=== PATIENT | male | born 1935 | race Caucasian/White ===

== ENCOUNTER → 2017-11-01 | Outpatient (CLI) | payer MEDICARE ==
[~2017-11-01] VITALS: Ht 180.3 cm; Wt 72.6 kg
[~2017-11-01] MED LIST: AC325T PO; AC500T PO; ACET-461 PO; AML5T PO; ASP81CT PO; ATOR10TA PO; AVOD0.5CAP PO; CALC-656 PO; CALC600T10 PO; CATHETER FLUSH 10 ML SYR IV PRN; CEFU500T5 PO; CLPD75T PO; DIPH50CA33 PO; FAMO20TA5 PO; FINA5TAB PO; LVT.05T PO; METO25TA2 GT; METO25TA2 PO; MULT-608 PO; NITR-65 PO; NITR100C3 PO; OMEG1CAP51 PO; OMEP20CA6 PO; ONDA-42 SL; PHEN200T16 PO; PHEN200T27 PO; PNT40TEC; PNT40TEC PO; PRD20T PO; QNS260T PO; REGADENOSON 0.4 MG/5 ML SYR (LEXISCAN) IV ONE; SENN-75 PO; SIMV20TA3 PO; SUCR1TAB PO; TMSL.4C; TMSL.4C PO; TRAM50TA2 PO
[2017-11-01 09:13] VITALS: BP 134/71
== END ==
LOC: CARD 07:17
PROVIDERS: ATTEND Internal Medicine Cardiovascular Disease
DX: I25.10 Atherosclerotic heart disease of native coronary artery without angina pectoris (principal); R06.02 Shortness of breath; I65.23 Occlusion and stenosis of bilateral carotid arteries; Z95.0 Presence of cardiac pacemaker; I49.5 Sick sinus syndrome; E78.4 Other hyperlipidemia; I10 Essential (primary) hypertension
CPT/HCPCS: 78452; 93017

== ENCOUNTER 2018-01-06 10:30 | Outpatient (RCR) | payer MEDICARE ==
[~2018-01-06 10:30] MED LIST changes: -CATHETER FLUSH 10 ML SYR IV PRN; -REGADENOSON 0.4 MG/5 ML SYR (LEXISCAN) IV ONE
== END 2018-01-08 | disposition home or self-care (01) ==
PROVIDERS: ATTEND Orthopaedic Surgery
DX: M62.81 Muscle weakness (generalized) (principal); T84.010A Broken internal right hip prosthesis, initial encounter; Z96.641 Presence of right artificial hip joint; W19.XXXA Unspecified fall, initial encounter; Y92.22 Religious institution as the place of occurrence of the external cause

== ENCOUNTER 2018-08-17 09:48 | Outpatient (RCR) | payer MEDICARE | END 2018-09-07 15:55 | disposition home or self-care (01) | DX: M54.5 Low back pain (principal) ==

== ENCOUNTER 2019-11-27 13:01 | Outpatient (RCR) | payer MEDICARE | END 2019-11-27 15:41 | disposition home or self-care (01) | DX: M62.81 Muscle weakness (generalized) (principal); R26.9 Unspecified abnormalities of gait and mobility; Z95.0 Presence of cardiac pacemaker; Z98.890 Other specified postprocedural states; Z87.81 Personal history of (healed) traumatic fracture; Z96.641 Presence of right artificial hip joint ==

== ENCOUNTER 2020-05-13 21:07 | Emergency (ER) | payer MEDICARE ==
[~2020-05-13] VITALS: Ht 175.3 cm; Wt 70.4 kg
[2020-05-13 21:16] VITALS: BP 163/88
--- NOTE | 2020-05-13 21:28 | ED General ---
General Stated Complaint: R HAND SWOLLEN-BEE STING Source of Information: Patient Exam Limitations: No Limitations History of Present Illness Date Seen by Provider: May 13, 2020 Time Seen by Provider: 21:15 Initial Comments Here with report of wasp sting to the right hand at the base of the thumb right at the wrist. Onset about 2 hours ago. Noticed that he had increasing swelling and please see his had reactions to wasp stings previously. Denies breathing problems, stomach pain, hives or oral swelling. Has not taken anything for this. Stinger was removed. Noticed increasing redness from the hand to the forearm on the palmar side. Does have swelling around the staying at the base of the thumb Timing/Duration: 1-3 Hours Severity: Mild Associated Systoms: No Cough, No Fever/Chills, No Nausea/Vomiting, No Shortness of Air, No Weakness Allergies and Home Medications Allergies Coded Allergies: levofloxacin (Verified Allergy, Unknown, 01/11/07) Home Medications Acetaminophen 500 Mg Tablet, 500-1,000 MG PO BID PRN for PAIN, (Reported) Aspirin 81 Mg Tablet, 81 MG PO HS, (Reported) Clopidogrel Bisulfate 75 Mg Tab, 75 MG PO DAILY Prescribed by: JEANIE RUSH on 04/30/15 1008 Finasteride 5 Mg Tablet, 5 MG PO DAILY, (Reported) Levothyroxine Sodium 50 Mcg Tablet, 50 MCG PO DAILY, (Reported) Multivitamins 1 Tab Tablet, 1 TAB PO DAILY, (Reported) [place]-3 Fatty Acids/Fish Oil 1 Each Capsule, 1,000 MG PO TID, (Reported) Pantoprazole Sod 40 Mg Tab, 40 MG PO ONCE Prescribed by: NATHEN HERNANDEZ on 06/09/15 0930 Sennosides/Docusate Sodium 1 Each Tablet, 1 EACH PO PRN, (Reported) Simvastatin 20 Mg Tablet, 20 MG PO WITH EVENING MEAL, (Reported) Tamsulosin Hcl 0.4 Mg Cap, 0.4 MG PO AFTER EVENING MEAL, (Reported) Patient Home Medication List Home Medication List Reviewed: Yes Review of Systems Review of Systems Constitutional: see HPI; No chills, No fever Respiratory: no symptoms reported Cardiovascular: no symptoms reported Gastrointestinal: no symptoms reported Skin: see HPI, change in color, lesions Past Pbwhhmi-Vsztal-Yjhyst Hx Past Med/Social Hx: Reviewed Nursing Past Med/Soc Hx Patient Social History Alcohol Use: Denies Use Recreational Drug Use: No Smoking Status: Never a Smoker 2nd Hand Smoke Exposure: No Recent Foreign Travel: No Contact w/Someone Who Travel: No Recent Hopitalizations: No Immunizations Up To Date Date of Pneumonia Vaccine: Sep 29, 2010 Date of Influenza Vaccine: Aug 27, 2012 Seasonal Allergies Seasonal Allergies: No Past Medical History Surgeries: Yes CABG, Coronary Stent, Defibrillator, Joint Replacement, Orthopedic, Pacemaker Respiratory: No Cardiac: Yes Coronary Artery Disease, High Cholesterol, Hypertension Neurological: No Reproductive Disorders: No Sexually Transmitted Disease: No HIV/AIDS: No Genitourinary: Yes Benign Prostatic Hyperpl, Prostate Problems Gastrointestinal: Yes Gastroesophageal Reflux Musculoskeletal: Yes Arthritis, Chronic Back Pain Endocrine: Yes Hypothyroidsim HEENT: No Cancer: Yes Skin Psychosocial: No Integumentary: No Blood Disorders: No Family Medical History Reviewed Nursing Family Hx No Pertinent Family Hx Physical Exam Vital Signs Capillary Refill : Height, Weight, BMI Height: 5'11.00" Weight: 160lbs. 0.0oz. 72.156442lu; 22.3 BMI Method:Stated General Appearance: No Apparent Distress, WD/WN HEENT: PERRL/EOMI, Pharynx Normal Respiratory: Lungs Clear, Normal Breath Sounds Cardiovascular: Regular Rate, Rhythm, No Murmur Neurologic/Psychiatric: Alert, Oriented x3 Skin: Warm/Dry, Other (area of swelling to the base of the right thumb on the dorsum where he was stung. Redness surrounding the area to the mid hand on the dorsal surface and then wraps over the thumb side to the palmar aspect of the distal forearm approximately 6 cm from the wrist. Retains range of motion of the hand and fingers.) Progress/Results/Core Measures Suspected Sepsis SIRS Temperature: Pulse: Respiratory Rate: Blood Pressure / Mean: Results/Orders Vital Signs/I&O Capillary Refill : Progress Note : Progress Note Seen and evaluated. Decadron 10 mg IM, Pepcid 20 mg by mouth and Benadryl 25 mg by mouth. Discharged home with return precautions. Patient verbalize understanding instructions and agreement with plan. Departure Impression Primary Impression: Wasp sting Qualified Codes: T63.464A - Toxic effect of venom of wasps, undetermined, initial encounter Disposition: 01 HOME, SELF-CARE Condition: Stable Departure-Patient Inst. Decision time for Depature: 21:27 Referrals: EZRA WADE MD (PCP) Primary Care Physician EVENS CHAMBERLAIN MD (Family) Primary Care Physician Patient Instructions: Insect Bites and Stings (DC) Add. Discharge Instructions: You may take Benadryl/diphenhydramine 25 mg every 6 hours as needed for itching or swelling. You may take Tylenol/acetaminophen 1000 mg every 6 hours as needed for pain. Follow-up with your Dr. for recheck in a few days as needed. Return for worse pain, swelling, hives, breathing problems, stomach upset or pain including nausea or swelling in the throat. Return for other concerns as needed. EVENS CHAMBERLAIN MD May 13, 2020 21:28
[2020-05-13] MEDS ORDERED: FAMOTIDINE 20 MG (PEPCID) TABLET PO ONE (21:30)
[2020-05-13] MEDS ORDERED: DEXAMETHASONE 10 MG/ML (DECADRON) 1 ML VIAL IM ONE (21:30)
[2020-05-13] MEDS ORDERED: diphenhydrAMINE 25 MG TAB (BENADRYL) PO ONE (21:30)
== END 2020-05-13 21:34 | disposition home or self-care (01) ==
LOC: EDUNIT# 21:07 → ER 21:08
DX: T63.461A Toxic effect of venom of wasps, accidental (unintentional), initial encounter (principal); I10 Essential (primary) hypertension; E78.00 Pure hypercholesterolemia, unspecified; I25.10 Atherosclerotic heart disease of native coronary artery without angina pectoris; K21.9 Gastro-esophageal reflux disease without esophagitis; E03.9 Hypothyroidism, unspecified; Z88.1 Allergy status to other antibiotic agents; Z79.82 Long term (current) use of aspirin; Z79.02 Long term (current) use of antithrombotics/antiplatelets; Z79.890 Hormone replacement therapy; Z95.810 Presence of automatic (implantable) cardiac defibrillator; Z95.5 Presence of coronary angioplasty implant and graft; Z95.1 Presence of aortocoronary bypass graft; Z85.828 Personal history of other malignant neoplasm of skin
CPT/HCPCS: 99284

== ENCOUNTER 2020-10-05 03:41 | Emergency (ER) | payer MEDICARE ==
[~2020-10-05] VITALS: Ht 175.3 cm; Wt 70.5 kg
[2020-10-05 03:47] VITALS: BP 167/95
--- NOTE | 2020-10-05 04:07 | ED Fall/Injury ---
General Chief Complaint: Trauma-Non Activation Stated Complaint: FALL; HEAD INJ Nursing Triage Note: REPORTS TRIPPING APPROX. 0150. SKIN TEAR TO TOP OF HEAD. DENIES LOC. Source: patient Exam Limitations: no limitations History of Present Illness Date Seen by Provider: Oct 05, 2020 Time Seen by Provider: 03:39 Initial Comments Patient presents ER by private conveyance with chief complaint that about an hour and a half prior to arrival he was walking around his house after going to the bathroom and tripped over a coffee table landing on the top of his head. He denies loss of consciousness or nausea. He's having some mild pain but does not want anything for the top of his head. He put a bandage over it because he had a little bleeding and says he does take Plavix. He is known to Dr. Wade and Dr. Ascencio. He's not having any pain elsewhere. Last tetanus vaccine was administered in 2008. Location Injury Occurred: HOME Allergies and Home Medications Allergies Coded Allergies: levofloxacin (Verified Allergy, Unknown, 01/11/07) Home Medications Acetaminophen 500 Mg Tablet, 500-1,000 MG PO BID PRN for PAIN, (Reported) Aspirin 81 Mg Tablet, 81 MG PO HS, (Reported) Clopidogrel Bisulfate 75 Mg Tab, 75 MG PO DAILY Prescribed by: JEANIE RUSH on 04/30/15 1008 Finasteride 5 Mg Tablet, 5 MG PO DAILY, (Reported) Levothyroxine Sodium 50 Mcg Tablet, 50 MCG PO DAILY, (Reported) Multivitamins 1 Tab Tablet, 1 TAB PO DAILY, (Reported) [place]-3 Fatty Acids/Fish Oil 1 Each Capsule, 1,000 MG PO TID, (Reported) Pantoprazole Sod 40 Mg Tab, 40 MG PO ONCE Prescribed by: NATHEN HERNANDEZ on 06/09/15 0930 Sennosides/Docusate Sodium 1 Each Tablet, 1 EACH PO PRN, (Reported) Simvastatin 20 Mg Tablet, 20 MG PO WITH EVENING MEAL, (Reported) Tamsulosin Hcl 0.4 Mg Cap, 0.4 MG PO AFTER EVENING MEAL, (Reported) Patient Home Medication List Home Medication List Reviewed: Yes Review of Systems Review of Systems Constitutional: No chills, No fever Eyes: Denies Blindness, Denies Drainage Ears, Nose, Mouth, Throat: denies ear pain, denies nose pain Respiratory: No cough, No short of breath Cardiovascular: No edema, No syncope Gastrointestinal: No abdominal pain, No constipation, No diarrhea Musculoskeletal: No back pain, No joint pain All Other Systems Reviewed Negative Unless Noted: Yes Past Ykkdlhp-Rzhmzg-Mqgynu Hx Patient Social History Alcohol Use: Denies Use Recreational Drug Use: No Smoking Status: Never a Smoker 2nd Hand Smoke Exposure: No Recent Foreign Travel: No Contact w/Someone Who Travel: No Recent Infectious Disease Expo: No Recent Hopitalizations: No Immunizations Up To Date Tetanus Booster (TDap): Unknown Date of Pneumonia Vaccine: Sep 29, 2010 Date of Influenza Vaccine: Aug 27, 2012 Seasonal Allergies Seasonal Allergies: No Past Medical History Surgeries: Yes CABG, Coronary Stent, Defibrillator, Joint Replacement, Orthopedic, Pacemaker Respiratory: No Cardiac: Yes Coronary Artery Disease, High Cholesterol, Hypertension Neurological: No Reproductive Disorders: No Sexually Transmitted Disease: No HIV/AIDS: No Genitourinary: Yes Benign Prostatic Hyperpl, Prostate Problems Gastrointestinal: Yes Gastroesophageal Reflux Musculoskeletal: Yes Arthritis, Chronic Back Pain Endocrine: Yes Hypothyroidsim HEENT: No Cancer: Yes Skin Psychosocial: No Integumentary: No Blood Disorders: No Family Medical History No Pertinent Family Hx Physical Exam Vital Signs Vital Signs - First Documented 10/05/20 03:47 Temp 36.0 Pulse 81 Resp 16 B/P (MAP) 167/95 (119) Pulse Ox 99 O2 Delivery Room Air Capillary Refill : Less Than 3 Seconds Height, Weight, BMI Height: 5'11.00" Weight: 160lbs. 0.0oz. 72.584621ks; 22.00 BMI Method:Stated General Appearance: WD/WN, no apparent distress HEENT: PERRL/EOMI, normal ENT inspection, TMs normal, pharynx normal, other (3 cm round abrasion superficial to the crown of the head midline. Smaller 1 senna meter around superficial abrasion posterior on the right parietal scalp from previous fall.) Neck: non-tender, full range of motion, supple, normal inspection Cardiovascular: normal peripheral pulses, regular rate, rhythm Respiratory: no respiratory distress, no accessory muscle use Gastrointestinal: normal bowel sounds, non tender Extremities: normal range of motion, normal capillary refill Neurologic/Psychiatric: alert, normal mood/affect, oriented x 3 Skin: normal color, warm/dry [place] Coma Score Best Eye Response: (4) Open Spontaneously Best Verbal Response: (5) Oriented Best Motor Response: (6) Obeys Commands [place] Total: 15 Procedures/Interventions Wound Location: Scalp Other Wound Location Midline scalp Wound Length (cm): 3 Wound's Depth, Shape: superficial Wound Explored: clean Irrigated w/ Saline (ccs): 50 Betadine Prep?: Yes (chlorhexidine) Wound Debrided: minimal Other Closure Supply: Wound Adhesive Progress/Results/Core Measures Results/Orders My Orders Orders - MAKENZIE BEARD Ct Head/Cervical Spine Wo (10/05/20 03:55) Vital Signs/I&O 10/05/20 03:47 Temp 36.0 Pulse 81 Resp 16 B/P (MAP) 167/95 (119) Pulse Ox 99 O2 Delivery Room Air Blood Pressure Mean: 119 Progress Progress Note : Time: 03:59 Progress Note Cleaned up the skin with chlorhexidine and saline and applied wound adhesive. It is now hemostatic. Plan to get a CT of his head given his age and Plavix. TDaP ordered. Diagnostic Imaging Diagonstic Imaging: CT Plain Films/CT/US/NM/MRI: c-spine, head Comments No acute intracranial hemorrhage mass effect and midline shift or tumor. No calvarial fracture or C-spine fracture/traumatic malalignment acutely seen. Reviewed: Reviewed Night Hawk Study, Reviewed by Me Departure Impression Primary Impression: Fall Qualified Codes: W19.XXXA - Unspecified fall, initial encounter Additional Impression: Abrasion Disposition: 01 HOME, SELF-CARE Condition: Stable Departure-Patient Inst. Decision time for Depature: 04:16 Referrals: EZRA WADE MD (PCP/Family) Primary Care Physician Patient Instructions: Skin Abrasions (DC) Add. Discharge Instructions: Tylenol 1000 mg every 8 hours as necessary for pain. The glue will fall off on its own over the next week. You're okay to take showers normally. If you start to have some bleeding from the abrasion you may apply direct pressure for 20 minutes and it should stop. All discharge instructions reviewed with patient and/or family. Voiced unders tanding. MAKENZIE BEARD Oct 05, 2020 04:06
[2020-10-05] MEDS ORDERED: TETANUS,DIPTH,PERTUSS P/F (BOOSTRIX) 0.5 ML VIAL IM ONE (05:00)
--- NOTE | 2020-10-05 07:27 | Diagnostic Imaging Report ---
PROCEDURE: CT head and CT cervical spine without contrast. TECHNIQUE: Multiple contiguous axial images were obtained through the brain and cervical spine without the use of intravenous contrast. Sagittal and coronal reformations through the cervical spine were then performed. Auto Exposure Controls were utilized during the CT exam to meet ALARA standards for radiation dose reduction. DATE: October 05, 2020. COMPARISON: CT head April 07, 2015. INDICATION: 85-year-old male, trauma to top of head. Head and neck pain. FINDINGS: There is mild soft tissue prominence in the high right anterior scalp which may relate to a small contusion or hematoma. There is no identified skull fracture. There are areas of low attenuation in the periventricular and subcortical white matter which most likely relate to mild changes of chronic small vessel ischemic disease. There are symmetric bilateral basal ganglia calcifications. There is no mass effect or midline shift. There is no acute intracranial hemorrhage. There is no abnormal extra-axial fluid collection. The visualized portions of the paranasal sinuses, mastoid air cells and middle ears are well aerated. There is no identified facet joint subluxation or dislocation. There is no asymmetric widening of the cervical disc spaces. There is no prominent prevertebral soft tissue swelling. There is no identified acute fracture of the cervical spine. There is mild disc height loss at C2-C3 and C3-C4. There is moderate to severe disc height loss at C5-C6 and C6-C7. There are also degenerative changes at C7-T1 and T1-T2. There are multilevel posterior disc osteophyte complexes of the cervical spine. CT is limited for assessment of disc pathology as well as evaluation of additional nonbony causes of pathology in the spinal canal. There is mild pleural parenchymal scarring in the right lung apex. There are bilateral carotid vascular calcifications. IMPRESSION: 1. No identified acute intracranial abnormality. 2. No identified acute abnormality of the cervical spine. 3. Mild changes of chronic small vessel ischemic disease. 4. Multilevel disc degenerative changes of the cervical spine. Dictated by: Dictated on workstation # [id number]
== END 2020-10-05 04:59 | disposition home or self-care (01) ==
LOC: EDUNIT# 03:41 → ER 03:42
DX: S00.01XA Abrasion of scalp, initial encounter (principal); I10 Essential (primary) hypertension; I25.10 Atherosclerotic heart disease of native coronary artery without angina pectoris; E78.00 Pure hypercholesterolemia, unspecified; E03.9 Hypothyroidism, unspecified; K21.9 Gastro-esophageal reflux disease without esophagitis; G89.29 Other chronic pain; R40.2360 Coma scale, best motor response, obeys commands, unspecified time; R40.2140 Coma scale, eyes open, spontaneous, unspecified time; R40.2250 Coma scale, best verbal response, oriented, unspecified time; Z85.828 Personal history of other malignant neoplasm of skin; Z95.1 Presence of aortocoronary bypass graft; Z95.5 Presence of coronary angioplasty implant and graft; Z88.1 Allergy status to other antibiotic agents; Z79.82 Long term (current) use of aspirin; Z79.890 Hormone replacement therapy; W01.0XXA Fall on same level from slipping, tripping and stumbling without subsequent striking against object, initial encounter; Y92.009 Unspecified place in unspecified non-institutional (private) residence as the place of occurrence of the external cause
CPT/HCPCS: 70450; 72125; 90715

== ENCOUNTER → 2022-01-08 | Outpatient (CLI) | payer MEDICARE | LOC: CARD 14:00 | PROVIDERS: ATTEND Nurse Practitioner Family | DX: I25.5 Ischemic cardiomyopathy (principal); I08.2 Rheumatic disorders of both aortic and tricuspid valves | CPT/HCPCS: 93306 ==

== ENCOUNTER → 2022-01-26 | Outpatient (CLI) | payer MEDICARE ==
[~2022-01-26] VITALS: Ht 185 cm; Wt 68.0 kg
[~2022-01-26] MED LIST changes: +CATHETER FLUSH 10 ML SYR IVP PRN; +REGADENOSON 0.4 MG/5 ML SYR (LEXISCAN) IV ONE
[2022-01-26 09:38] VITALS: BP 147/77
--- NOTE | 2022-01-26 20:24 | STRESS TEST ---
DATE OF SERVICE: 01/26/2022 RESTING AND POST REGADENOSON TECHNETIUM-99M TETROFOSMIN SPECT CT IMAGING ORDERING PHYSICIAN: Katya Mata APRN PRIMARY PHYSICIAN: Dr. Murillo. CLINICAL DIAGNOSIS: Coronary artery disease. Baseline images were carried out after injection of 10.97 mCi of technetium-99m Tetrofosmin. This was followed by 0.4 mg regadenoson and 29.7 mCi of technetium-99m Tetrofosmin for stress imaging. The electrocardiogram showed sinus rhythm with nonspecific ST and T-wave abnormality at baseline. It did not change significantly with regadenoson infusion. The patient tolerated the procedure well. Review of images at rest and following stress does not indicate any distinct perfusion defects consistent with significant myocardial ischemia or infarction. Gated images show normal global left ventricular systolic function with normal regional wall motion. Left ventricular ejection fraction is calculated to be 47%. Subjectively, it appears higher than that. Left ventricular end-diastolic volume is 79 mL. TID is absent (1.03). CONCLUSIONS: 1. No evidence of significant myocardial ischemia or infarction on this study. 2. Normal regional wall motion. 3. Normal global left ventricular systolic function. Left ventricular ejection fraction is calculated to be 47%, but appears higher, subjectively. Job ID: [id number] DocumentID: [id number] Dictated Date: 01/26/2022 16:19:59 Director Industrial Nursing Date: 01/26/2022 20:23:43 Dictated By: ALEXX LEMONS MD, MA, FACP, FACC,
== END ==
LOC: CARD 08:30
PROVIDERS: ATTEND Nurse Practitioner Family
DX: I25.10 Atherosclerotic heart disease of native coronary artery without angina pectoris (principal)
CPT/HCPCS: 78452; 93017; A9502

== ENCOUNTER 2022-11-04 11:34 | Emergency (ER) | payer MEDICARE ==
[~2022-11-04] VITALS: Ht 180 cm; Wt 63.5 kg
[~2022-11-04 11:34] MED LIST changes: -CATHETER FLUSH 10 ML SYR IVP PRN; -REGADENOSON 0.4 MG/5 ML SYR (LEXISCAN) IV ONE
--- NOTE | 2022-11-04 12:55 | ED General ---
General Chief Complaint: Cough/Cold/Flu Symptoms Stated Complaint: SOA Nursing Triage Note: PT PRESENTS TO ED VIA POV FROM HOME WITH COMPLAINTS OF COUGH, CONGESTION, SORE THROAT, AND DIARRHEA X1 WEEK. PT UNURE IF HE HAS BEEN RUNNING A TEMPERATURE BUT DENIES CHILLS. Source of Information: Patient Exam Limitations: No Limitations (JENN CAST APRN) History of Present Illness Date Seen by Provider: Nov 04, 2022 Time Seen by Provider: 12:40 Initial Comments Patient is an 87-year-old male who presents to the emergency department for evaluation of approximately 3 days of mild nonproductive cough, sore throat, and body aches. Denies any known sick contacts in the recent past. Has not formally checked his temperature but states he has been having some chills intermittently. Denies any significant shortness of breath, chest pain, or focal numbness/weakness. (JENN CAST APRN) Allergies and Home Medications Allergies Coded Allergies: levofloxacin (Verified Allergy, Unknown, 01/11/07) Patient Home Medication List Home Medication List Reviewed: Yes (JENN CAST APRN) Acetaminophen (Pain Relief Extra Strength) 500 Mg Tablet, 500-1,000 MG PO BID PRN for PAIN, (Reported) Entered as Reported by: AIDEE STEEN on 04/29/15813 Aspirin (Aspirin) 81 Mg Tablet, 81 MG PO HS, (Reported) Entered as Reported by: ADAN PERRIN on 02/18/07 1701 Clopidogrel Bisulfate (Plavix Tablet) 75 Mg Tab, 75 MG PO DAILY Prescribed by: JEANIE RUSH on 04/30/15 1008 Finasteride (Finasteride) 5 Mg Tablet, 5 MG PO DAILY, (Reported) Entered as Reported by: AIDEE STEEN on 04/29/15813 Levothyroxine Sodium (Levothyroxine 50 Mcg Tab) 50 Mcg Tablet, 50 MCG PO DAILY, (Reported) Entered as Reported by: AIDEE STEEN on 04/29/15813 Multivitamins (Multiple Vitamin) 1 Tab Tablet, 1 TAB PO DAILY, (Reported) Entered as Reported by: CHAVEZ MALCOLM on 08/14/11 1456 [place]-3 Fatty Acids/Fish Oil (Fish Oil 1,000 Mg Softgel) 1 Each Capsule, 1,000 MG PO TID, (Reported) Entered as Reported by: ANTONELLA ROSE on 03/21/11 190 Pantoprazole Sod (Protonix Tab) 40 Mg Tab, 40 MG PO ONCE Prescribed by: NATHEN HERNANDEZ on 06/09/15 0930 Sennosides/Docusate Sodium (Stool Softener Tablet) 1 Each Tablet, 1 EACH PO PRN, (Reported) Entered as Reported by: ROGER BALTAZAR on 06/05/15 1220 Simvastatin (Simvastatin) 20 Mg Tablet, 20 MG PO WITH EVENING MEAL, (Reported) Entered as Reported by: ANTONELLA ROSE on 03/21/11 190 Tamsulosin Hcl (Flomax) 0.4 Mg Cap, 0.4 MG PO AFTER EVENING MEAL, (Reported) Entered as Reported by: ANTONELLA ROSE on 03/19/13 1339 Review of Systems Review of Systems Constitutional: see HPI, malaise EENTM: see HPI, nose congestion, throat pain Respiratory: see HPI, cough Cardiovascular: no symptoms reported Gastrointestinal: no symptoms reported Musculoskeletal: see HPI Skin: no symptoms reported Psychiatric/Neurological: No Symptoms Reported (JENN CAST APRN) Past Uklrhzd-Ggcmog-Jkuhnn Hx Patient Social History Tobacco Use?: No Substance use?: No Alcohol Use?: No (JENN CAST APRN) Immunizations Up To Date Tetanus Booster (TDap): Unknown Influenza Vaccine Up-to-Date: No; Not Current First/Initial COVID19 Vaccinat: NO Second COVID19 Vaccination Haja: NO Third COVID19 Vaccination Date: NO (JENN CAST APRN) Seasonal Allergies Seasonal Allergies: No (JENN CAST APRN) Past Medical History Surgery/Hospitalization HX: PMH: IRREGULAR HR, HTN, HIGH CHOL, Surgeries: Yes CABG, Coronary Stent, Defibrillator, Joint Replacement, Orthopedic, Pacemaker Respiratory: No Cardiac: Yes Coronary Artery Disease, High Cholesterol, Hypertension Neurological: No Reproductive Disorders: No Sexually Transmitted Disease: No HIV/AIDS: No Genitourinary: Yes Benign Prostatic Hyperpl, Prostate Problems Gastrointestinal: Yes Gastroesophageal Reflux Musculoskeletal: Yes Arthritis, Chronic Back Pain Endocrine: Yes Hypothyroidsim HEENT: No Cancer: Yes Skin Psychosocial: No Integumentary: No Blood Disorders: No (JENN CAST APRN) Family Medical History No Pertinent Family Hx (JENN CAST APRN) Physical Exam Vital Signs Vital Signs - First Documented 11/04/22 11:45 Temp 36.9 Pulse 104 Resp 18 B/P (MAP) 100/64 (76) Pulse Ox 94 (REY BAIN MD) Vital Signs Capillary Refill : Less Than 3 Seconds (JENN CAST APRN) Height, Weight, BMI Height: 5'11.00" Weight: 160lbs. 0.0oz. 72.129998bx; 19.00 BMI Method:Stated General Appearance: No Apparent Distress, WD/WN HEENT: PERRL/EOMI, TMs Normal, Normal ENT Inspection, Pharynx Normal Neck: Non Tender, Supple Respiratory: Chest Non Tender, Lungs Clear, Normal Breath Sounds, No Accessory Muscle Use, No Respiratory Distress Cardiovascular: Regular Rate, Rhythm Gastrointestinal: Non Tender, Soft Extremity: Non Tender, No Calf Tenderness Neurologic/Psychiatric: Alert, Oriented x3, No Motor/Sensory Deficits, Normal Mood/Affect, waredresser II-XII Norm as Tested Skin: Normal Color, Warm/Dry (JENN CAST APRN) Progress/Results/Core Measures Suspected Sepsis SIRS Temperature: Pulse: 104 Respiratory Rate: 18 Blood Pressure 100 /64 Mean: 76 (JENN CAST APRN) Results/Orders Lab Results Laboratory Tests Test 11/04/22 12:04 Range/Units Influenza Type A (RT-PCR) Detected H Not Detecte Influenza Type B (RT-PCR) Not Detected Not Detecte SARS-CoV-2 RNA (RT-PCR) Not Detected Not Detecte (REY BAIN MD) My Orders Orders - REY BAIN MD Covid 19 Inhouse Test (11/04/22 11:55) Influenza A And B By Pcr (11/04/22 11:55) Isolation Central Supply Req (11/04/22 11:55) (REY BAIN MD) Vital Signs/I&O 11/04/22 11/04/22 11:45 13:24 Temp 36.9 36.9 Pulse 104 104 Resp 18 18 B/P (MAP) 100/64 (76) 100/64 Pulse Ox 94 94 (REY BAIN MD) Vital Signs/I&O Capillary Refill : Less Than 3 Seconds (JENN CAST APRN) Blood Pressure Mean: 76 Progress Note : Progress Note Patient is nontoxic and well-hydrated on exam. No adventitious lung sounds or increased work of breathing noted. Patient is awake alert and oriented x4. He was ambulatory to the exam room without issue. Vital signs are reassuring. Rapid flu test positive for influenza A. This is very likely etiology of patient's symptoms. No obvious concurrent nidus of bacterial infection noted on exam. Discussed supportive care and anticipatory guidance. Follow-up with PCP. Return precautions for urgent symptomology discussed. Patient verbalized understanding. (JENN CAST APRN) Departure Impression Primary Impression: Influenza A Disposition: HOME, SELF-CARE Condition: Stable Departure-Patient Inst. Decision time for Depature: 12:50 (JENN CAST APRN) Referrals: ENRIKE VIEIRA MD (PCP/Family) Primary Care Physician Patient Instructions: Flu, Adult (DC) ATTENDING PHYSICIAN NOTE: I was physically present as attending physician in the emergency department during the care of this patient, but I was not directly involved in the decision making or delivery of care for this patient. (REY BAIN MD) JENN CAST APRN Nov 04, 2022 12:55 REY BAIN MD Nov 05, 2022 00:48
[2022-11-04 13:24] VITALS: BP 100/64
== END 2022-11-04 13:24 | disposition home or self-care (01) ==
LOC: EDUNIT# 11:34 → ER 11:36
DX: J10.1 Influenza due to other identified influenza virus with other respiratory manifestations (principal); Z20.822 Contact with and (suspected) exposure to COVID-19; Z28.310 Unvaccinated for COVID-19
CPT/HCPCS: 87636; 99283

== ENCOUNTER → 2022-11-10 | Outpatient (CLI) | payer MEDICARE ==
[2022-11-10 15:57] LABS: BASOPHILS % (AUTO) 1 % (0-10); EOSINOPHILS # (AUTO) 0.1 10^3/uL (0.0-0.3); EOSINOPHILS % (AUTO) 3 % (0-10); HEMATOCRIT 40 % (40-54); HEMOGLOBIN 13.4 g/dL (13.3-17.7); LYMPHOCYTES # (AUTO) 1.3 10^3/uL (1.0-4.0); LYMPHOCYTES % (AUTO) 31 % (12-44); MEAN CORPUSCULAR HEMOGLOBIN 32 pg (25-34); MEAN CORPUSCULAR HGB CONC 34 g/dL (32-36); MEAN CORPUSCULAR VOLUME 93 fL (80-99); MEAN PLATELET VOLUME 9.5 fL (9.0-12.2); MONOCYTES # (AUTO) 0.6 10^3/uL (0.0-1.0); MONOCYTES % (AUTO) 14 % (0-12); NEUTROPHILS # (AUTO) 2.2 10^3/uL (1.8-7.8); NEUTROPHILS % (AUTO) 51 % (42-75); PLATELET COUNT 200 10^3/uL (130-400); WHITE BLOOD COUNT 4.3 10^3/uL (4.3-11.0)
[2022-11-10 16:21] LABS: ALBUMIN 4.1 GM/DL (3.2-4.5); BILIRUBIN,TOTAL 0.4 MG/DL (0.1-1.0); CALCIUM 9.6 MG/DL (8.5-10.1); CREATININE SERUM 0.99 MG/DL (0.60-1.30); POTASSIUM 3.5 MMOL/L (3.6-5.0); TOTAL PROTEIN 7.5 GM/DL (6.4-8.2)
[2022-11-10 16:41] LABS: FREE T4 (FREE THYROXINE) 1.14 NG/DL (0.70-1.48)
--- NOTE | 2022-11-10 17:20 | Diagnostic Imaging Report ---
EXAMINATION: Thoracic spine radiograph EXAM DATE: 11/10/2022 3:57 PM COMPARISON: None available. HISTORY: Mid back pain TECHNIQUE: 3 views FINDINGS: There is no acute fracture, dislocation, or destructive osseous process. Vertebral body alignment is normal. There are minimal mid thoracic anterior wedge deformities measuring up to 30% at T6. Surgical changes from median sternotomy, CABG, and left-sided cardiac device placement. Lungs are otherwise clear as visualized. IMPRESSION: 1. Multilevel thoracic spondylosis with mid thoracic anterior wedge deformities, up to 30% at T6. Dictated by: Dictated on workstation # [id number]
--- NOTE | 2022-11-10 17:22 | Diagnostic Imaging Report ---
EXAMINATION: Lumbar spine radiograph EXAM DATE: 11/10/2022 3:57 PM COMPARISON: 01/28/2016. HISTORY: THORACIC AND LUMBAR SPINE PAIN TECHNIQUE: Three views FINDINGS: Vertebral body heights and alignment are normal. There is multilevel lumbar spondylosis, greatest at L4-L5 and L5-S1. There is disc height loss at L4-L5 and L5-S1. There is multilevel facet hypertrophy, greatest in the lower lumbar spine. Soft tissues are unremarkable. Right hip arthroplasty. IMPRESSION: 1. Degenerative changes of the lumbar spine without acute osseous abnormality. Dictated by: Dictated on workstation # [id number]
== END ==
LOC: RAD 15:29
PROVIDERS: ATTEND Family Medicine
DX: M47.814 Spondylosis without myelopathy or radiculopathy, thoracic region (principal); M43.9 Deforming dorsopathy, unspecified; E03.9 Hypothyroidism, unspecified; I10 Essential (primary) hypertension
CPT/HCPCS: 36415; 72072; 72100; 80053; 84439; 84443; 85025

== ENCOUNTER 2023-01-21 15:24 | Emergency (ER) | payer MEDICARE ==
[~2023-01-21] VITALS: Ht 155 cm; Wt 79.0 kg
--- NOTE | 2023-01-21 15:35 | ED Chest Pain ---
General Chief Complaint: Chest Wall Stated Complaint: CHEST PAIN/FLUTTER History of Present Illness Date Seen by Provider: Jan 21, 2023 Time Seen by Provider: 15:35 Initial Comments 88-year-old male presents with a couple episodes of what he describes as some "fluttering" of his right lower chest wall or right upper abdomen. He reports he had a feeling of some fluttering that was really brief this morning and then he had a couple other episodes. He is not having any pain shortness of breath or other symptoms at this time. That he did not have pain with it just [place] funny. No nausea vomiting or any other systemic complaints. He presents because he just want to be checked out. Allergies and Home Medications Allergies Coded Allergies: acetaminophen (Verified Allergy, Unknown, 01/21/23) atorvastatin (Verified Allergy, Unknown, WEAKNESS, 01/21/23) levofloxacin (Verified Allergy, Unknown, 01/11/07) propoxyphene (Verified Allergy, Unknown, 01/21/23) Patient Home Medication List Home Medication List Reviewed: Yes Acetaminophen (Pain Relief Extra Strength) 500 Mg Tablet, 500-1,000 MG PO BID PRN for PAIN, (Reported) Entered as Reported by: AIDEE STEEN on 04/29/15813 Aspirin (Aspirin) 81 Mg Tablet, 81 MG PO HS, (Reported) Entered as Reported by: ADAN PERRIN on 02/18/07 1701 Clopidogrel Bisulfate (Plavix Tablet) 75 Mg Tab, 75 MG PO DAILY Prescribed by: JEANIE RUSH on 04/30/15 1008 Finasteride (Finasteride) 5 Mg Tablet, 5 MG PO DAILY, (Reported) Entered as Reported by: AIDEE STEEN on 04/29/15813 Levothyroxine Sodium (Levothyroxine 50 Mcg Tab) 50 Mcg Tablet, 50 MCG PO DAILY, (Reported) Entered as Reported by: AIDEE STEEN on 04/29/15813 Multivitamins (Multiple Vitamin) 1 Tab Tablet, 1 TAB PO DAILY, (Reported) Entered as Reported by: CHAVEZ MALCOLM on 08/14/11 1456 [place]-3 Fatty Acids/Fish Oil (Fish Oil 1,000 Mg Softgel) 1 Each Capsule, 1,000 MG PO TID, (Reported) Entered as Reported by: ANTONELLA ROSE on 03/21/11 1900 Pantoprazole Sod (Protonix Tab) 40 Mg Tab, 40 MG PO ONCE Prescribed by: NATHEN HERNANDEZ on 06/09/15 0930 Sennosides/Docusate Sodium (Stool Softener Tablet) 1 Each Tablet, 1 EACH PO PRN, (Reported) Entered as Reported by: ROGER BALTAZAR on 06/05/15 1220 Simvastatin (Simvastatin) 20 Mg Tablet, 20 MG PO WITH EVENING MEAL, (Reported) Entered as Reported by: ANTONELLA ROSE on 03/21/11 1900 Tamsulosin Hcl (Flomax) 0.4 Mg Cap, 0.4 MG PO AFTER EVENING MEAL, (Reported) Entered as Reported by: ANTONELLA ROSE on 03/19/13 1339 Review of Systems Review of Systems Constitutional: No chills, No fever EENTM: No Symptoms Reported Respiratory: No Symptoms Reported Cardiovascular: See HPI Gastrointestinal: See HPI Genitourinary: No Symptoms Reported Skin: no symptoms reported Psychiatric/Neurological: No Symptoms Reported Endocrine: No Symptoms Reported Past Zrshdtd-Qpzgek-Ipsrgc Hx Immunizations Up To Date Tetanus Booster (TDap): Unknown First/Initial COVID19 Vaccinat: NO Second COVID19 Vaccination Haja: NO Third COVID19 Vaccination Date: NO Seasonal Allergies Seasonal Allergies: No Past Medical History Surgery/Hospitalization HX: PMH: IRREGULAR HR, HTN, HIGH CHOL, Surgeries: Yes CABG, Coronary Stent, Defibrillator, Joint Replacement, Orthopedic, Pacemaker Respiratory: No Cardiac: Yes Coronary Artery Disease, High Cholesterol, Hypertension Neurological: No Reproductive Disorders: No Sexually Transmitted Disease: No HIV/AIDS: No Genitourinary: Yes Benign Prostatic Hyperpl, Prostate Problems Gastrointestinal: Yes Gastroesophageal Reflux Musculoskeletal: Yes Arthritis, Chronic Back Pain Endocrine: Yes Hypothyroidsim HEENT: No Cancer: Yes Skin Psychosocial: No Integumentary: No Blood Disorders: No Family Medical History No Pertinent Family Hx Physical Exam Vital Signs Vital Signs - First Documented 01/21/23 15:25 Temp 35.7 Pulse 81 Resp 18 B/P (MAP) 178/88 (118) Pulse Ox 98 O2 Delivery Room Air Capillary Refill : Height, Weight, BMI Height: 5'11.00" Weight: 160lbs. 0.0oz. 72.306180jl; 19.00 BMI Method:Stated General Appearance: No Apparent Distress, WD/WN Neck: Full Range of Motion, Normal Inspection Respiratory: Lungs Clear, Normal Breath Sounds Cardiovascular: Regular Rate, Rhythm, No Edema Gastrointestinal: Non Tender, Soft Extremity: Normal Capillary Refill Neurologic/Psychiatric: Alert, Oriented x3, No Motor/Sensory Deficits, Normal Mood/Affect Skin: Normal Color, Warm/Dry Progress/Results/Core Measures Results/Orders Lab Results Laboratory Tests Test 01/21/23 15:40 Range/Units White Blood Count 5.0 4.3-11.0 10^3/uL Red Blood Count 4.08 L 4.30-5.52 10^6/uL Hemoglobin 13.3 13.3-17.7 g/dL Hematocrit 39 L 40-54 % Mean Corpuscular Volume 96 80-99 fL Mean Corpuscular Hemoglobin 33 25-34 pg Mean Corpuscular Hemoglobin Concent 34 32-36 g/dL Red Cell Distribution Width 13.2 10.0-14.5 % Platelet Count 195 130-400 10^3/uL Mean Platelet Volume 9.8 9.0-12.2 fL Immature Granulocyte % (Auto) 0 % Neutrophils (%) (Auto) 56 42-75 % Lymphocytes (%) (Auto) 28 12-44 % Monocytes (%) (Auto) 12 0-12 % Eosinophils (%) (Auto) 4 0-10 % Basophils (%) (Auto) 1 0-10 % Neutrophils # (Auto) 2.8 1.8-7.8 10^3/uL Lymphocytes # (Auto) 1.4 1.0-4.0 10^3/uL Monocytes # (Auto) 0.6 0.0-1.0 10^3/uL Eosinophils # (Auto) 0.2 0.0-0.3 10^3/uL Basophils # (Auto) 0.0 0.0-0.1 10^3/uL Immature Granulocyte # (Auto) 0.0 0.0-0.1 10^3/uL Prothrombin Time 14.3 12.2-14.7 SEC INR Comment 1.1 0.8-1.4 Activated Partial Thromboplast Time 30 24-35 SEC Sodium Level 141 135-145 MMOL/L Potassium Level 4.0 3.6-5.0 MMOL/L Chloride Level 106 98-107 MMOL/L Carbon Dioxide Level 26 21-32 MMOL/L Anion Gap 9 5-14 MMOL/L Blood Urea Nitrogen 25 H 7-18 MG/DL Creatinine 1.14 0.60-1.30 MG/DL Estimat Glomerular Filtration Rate 62 BUN/Creatinine Ratio 22 Glucose Level 109 H 70-105 MG/DL Calcium Level 9.4 8.5-10.1 MG/DL Corrected Calcium 9.2 8.5-10.1 MG/DL Magnesium Level 1.9 1.6-2.4 MG/DL Total Bilirubin 0.3 0.1-1.0 MG/DL Aspartate Amino Transf (AST/SGOT) 24 5-34 U/L Alanine Aminotransferase (ALT/SGPT) 22 0-55 U/L Alkaline Phosphatase 91 40-136 U/L Troponin I < 0.028 <0.028 NG/ML Total Protein 7.1 6.4-8.2 GM/DL Albumin 4.2 3.2-4.5 GM/DL Vital Signs/I&O 01/21/23 15:25 Temp 35.7 Pulse 81 Resp 18 B/P (MAP) 178/88 (118) Pulse Ox 98 O2 Delivery Room Air Progress Progress Note : Progress Note Reviewed patient's labs, there is no acute findings. Patient had no significant findings on physical exam. He had negative chest x-ray, negative EKG. Patient's symptoms are right-sided and not really consistent with a cardiac in nature. Patient is not having pain and has not had any pain while in the ER. Recommend he follow-up with his primary care provider as needed. He is stable and discharged home Initial ECG Impression Date: Jan 21, 2023 Initial ECG Impression Time: 15:40 Initial ECG Rhythm: Normal Sinus Initial ECG Intervals: Normal Initial ECG Impression: Nonspecific Changes Comment no acute st elevation or changes Diagnostic Imaging Diagonstic Imaging: Xray Plain Films/CT/US/NM/MRI: chest Comments Date of Exam:01/21/23 CHEST 1 VIEW, AP/PA ONLY INDICATION: Chest pain. EXAMINATION: Portable chest at 03:54 p.m. FINDINGS: There is a dual-chamber pacemaker. There are postop changes from median sternotomy. Heart size and pulmonary vascularity are normal. Lungs are clear. There are no effusions or pneumothoraces. IMPRESSION: No acute abnormalities in the chest. Reviewed: Reviewed by Me, Reviewed/Discussed Departure Impression Primary Impression: Right-sided chest wall pain Disposition: HOME, SELF-CARE Condition: Stable Departure-Patient Inst. Referrals: ENRIKE VIEIRA MD (PCP/Family) Primary Care Physician Patient Instructions: Chest Pain That Is Not Caused by the Heart (DC) Add. Discharge Instructions: Follow-up with your primary care provider next week if symptoms return. All discharge instructions reviewed with patient and/or family. Voiced understanding. VIVEK FERRERA DO Jan 21, 2023 15:35
[2023-01-21 15:50] LABS: BASOPHILS % (AUTO) 1 % (0-10); EOSINOPHILS # (AUTO) 0.2 10^3/uL (0.0-0.3); EOSINOPHILS % (AUTO) 4 % (0-10); HEMATOCRIT 39 % (40-54); HEMOGLOBIN 13.3 g/dL (13.3-17.7); LYMPHOCYTES # (AUTO) 1.4 10^3/uL (1.0-4.0); LYMPHOCYTES % (AUTO) 28 % (12-44); MEAN CORPUSCULAR HEMOGLOBIN 33 pg (25-34); MEAN CORPUSCULAR HGB CONC 34 g/dL (32-36); MEAN CORPUSCULAR VOLUME 96 fL (80-99); MEAN PLATELET VOLUME 9.8 fL (9.0-12.2); MONOCYTES # (AUTO) 0.6 10^3/uL (0.0-1.0); MONOCYTES % (AUTO) 12 % (0-12); NEUTROPHILS # (AUTO) 2.8 10^3/uL (1.8-7.8); NEUTROPHILS % (AUTO) 56 % (42-75); PLATELET COUNT 195 10^3/uL (130-400)
[2023-01-21 15:58] LABS: ALBUMIN 4.2 GM/DL (3.2-4.5)
[2023-01-21 15:59] LABS: CALCIUM 9.4 MG/DL (8.5-10.1)
[2023-01-21 16:01] LABS: TOTAL PROTEIN 7.1 GM/DL (6.4-8.2)
[2023-01-21 16:02] LABS: BILIRUBIN,TOTAL 0.3 MG/DL (0.1-1.0); INR 1.1 (0.8-1.4); PROTHROMBIN TIME PATIENT 14.3 SEC (12.2-14.7)
[2023-01-21 16:04] LABS: CREATININE SERUM 1.14 MG/DL (0.60-1.30)
[2023-01-21 16:07] LABS: MAGNESIUM 1.9 MG/DL (1.6-2.4)
--- NOTE | 2023-01-21 16:11 | Diagnostic Imaging Report ---
INDICATION: Chest pain. EXAMINATION: Portable chest at 03:54 p.m. FINDINGS: There is a dual-chamber pacemaker. There are postop changes from median sternotomy. Heart size and pulmonary vascularity are normal. Lungs are clear. There are no effusions or pneumothoraces. IMPRESSION: No acute abnormalities in the chest. Dictated by: Dictated on workstation # [id number]
[2023-01-21 17:21] VITALS: BP 155/88
== END 2023-01-21 17:25 | disposition home or self-care (01) ==
LOC: EDUNIT# 15:24 → ER 15:25
DX: R07.89 Other chest pain (principal); Z95.1 Presence of aortocoronary bypass graft; Z95.5 Presence of coronary angioplasty implant and graft; Z95.0 Presence of cardiac pacemaker
CPT/HCPCS: 36415; 71045; 80053; 83735; 84484; 85025; 85610; 85730; 93005; 93041

== ENCOUNTER → 2023-01-31 | Outpatient (CLI) | payer MEDICARE ==
--- NOTE | 2023-01-31 12:36 | Diagnostic Imaging Report ---
PROCEDURE: CT head without contrast. TECHNIQUE: Multiple contiguous axial images were obtained through the brain without the use of intravenous contrast. Auto Exposure Controls were utilized during the CT exam to meet ALARA standards for radiation dose reduction. INDICATION: Memory loss. COMPARISON: Correlation is made with the prior head CT from 10/05/2020. FINDINGS: The ventricles and sulci are appropriate for the patient's age. Periventricular low attenuation is noted, consistent with senescent change. There is no sulcal effacement or midline shift. No acute intra-axial or extra-axial hemorrhage is detected. The cisterns are patent. The visualized paranasal sinuses are clear. IMPRESSION: Senescent changes. No acute intracranial process is identified. Dictated by: Dictated on workstation # [id number]
== END ==
LOC: RAD 12:05
PROVIDERS: ATTEND Family Medicine
DX: G93.89 Other specified disorders of brain (principal); R41.3 Other amnesia
CPT/HCPCS: 70450

== ENCOUNTER 2023-02-28 11:04 | Emergency (ER) | payer MEDICARE ==
--- NOTE | 2023-02-28 11:45 | ED General ---
General Chief Complaint: General Problems/Pain Stated Complaint: LT WRIST PAIN | LIGHTHEADED Nursing Triage Note: PT AMB TO [facility] WITH C/O L HAND/ WRIST HURTING AFTER WAKING UP IN THE CHAIR THIS MORNING. PT STATES HIS WRIST TURNED BLUE AND HAD CRAMPING IN HIS HANDS AND LEGS THIS MORNING. PT SAID HE FELT DIZZY AFTER. PT DENIES SYMPTOMS AT THIS TIME Source of Information: Patient Exam Limitations: No Limitations History of Present Illness Date Seen by Provider: Feb 28, 2023 Time Seen by Provider: 11:40 Initial Comments Patient is a 88-year-old male with a history of coronary artery disease currently on Plavix who presents to ED with left wrist pain. Patient states he woke up around 7:00 this morning noted the volar side of his left wrist that was a slightly blue. He states the blueness lasted for about an hour. He had some mild pain and discomfort. Unclear if he slept on his arm wrong in the chair. He states eventually the blueness and pain resolved. He has no current complaints at this time. He states he felt a little lightheaded had some mild cramps in his hands but that lasted shortly after he woke up. He denies of any current chest pain, cough, shortness of breath, headache, dizziness, visual changes, vomiting, diarrhea, fever, trauma to the wrist. Denies history of peripheral artery disease. Allergies and Home Medications Allergies Coded Allergies: acetaminophen (Verified Allergy, Unknown, 01/21/23) atorvastatin (Verified Allergy, Unknown, WEAKNESS, 01/21/23) levofloxacin (Verified Allergy, Unknown, 01/11/07) propoxyphene (Verified Allergy, Unknown, 01/21/23) Patient Home Medication List Home Medication List Reviewed: Yes Acetaminophen (Pain Relief Extra Strength) 500 Mg Tablet, 500-1,000 MG PO BID PRN for PAIN, (Reported) Entered as Reported by: AIDEE STEEN on 04/29/15 0814 Aspirin (Aspirin) 81 Mg Tablet, 81 MG PO HS, (Reported) Entered as Reported by: ADAN PERRIN on 02/18/07 1701 Clopidogrel Bisulfate (Plavix Tablet) 75 Mg Tab, 75 MG PO DAILY Prescribed by: JEANIE RUSH on 04/30/15 1008 Finasteride (Finasteride) 5 Mg Tablet, 5 MG PO DAILY, (Reported) Entered as Reported by: AIDEE STEEN on 04/29/15 08 Levothyroxine Sodium (Levothyroxine 50 Mcg Tab) 50 Mcg Tablet, 50 MCG PO DAILY, (Reported) Entered as Reported by: AIDEE STEEN on 04/29/15813 Multivitamins (Multiple Vitamin) 1 Tab Tablet, 1 TAB PO DAILY, (Reported) Entered as Reported by: CHAVEZ MALCOLM on 08/14/11 1456 [place]-3 Fatty Acids/Fish Oil (Fish Oil 1,000 Mg Softgel) 1 Each Capsule, 1,000 MG PO TID, (Reported) Entered as Reported by: ANTONELLA ROSE on 03/21/11 1900 Pantoprazole Sod (Protonix Tab) 40 Mg Tab, 40 MG PO ONCE Prescribed by: NATHEN HERNANDEZ on 06/09/15 0930 Sennosides/Docusate Sodium (Stool Softener Tablet) 1 Each Tablet, 1 EACH PO PRN, (Reported) Entered as Reported by: ROGER BALTAZAR on 06/05/15 1220 Simvastatin (Simvastatin) 20 Mg Tablet, 20 MG PO WITH EVENING MEAL, (Reported) Entered as Reported by: ANTONELLA ROSE on 03/21/11 190 Tamsulosin Hcl (Flomax) 0.4 Mg Cap, 0.4 MG PO AFTER EVENING MEAL, (Reported) Entered as Reported by: ANTONELLA ROSE on 03/19/13 1339 Review of Systems Review of Systems Constitutional: No chills, No diaphoresis, No fever, No malaise EENTM: No blurred vision, No double vision Respiratory: No cough, No dyspnea on exertion Cardiovascular: No chest pain Gastrointestinal: No abdominal pain, No diarrhea, No vomiting Genitourinary: No decreased output, No discharge Musculoskeletal: joint pain Skin: other (Blue skin of the left volar wrist) Psychiatric/Neurological: Denies Anxiety, Denies Depressed All Other Systems Reviewed Negative Unless Noted: Yes Past Alrfneo-Voaacw-Hsqmbf Hx Patient Social History Tobacco Use?: No Use of E-Cig and/or Vaping dev: No Substance use?: No Alcohol Use?: No Pt feels they are or have been: No Immunizations Up To Date Tetanus Booster (TDap): Unknown First/Initial COVID19 Vaccinat: NO Second COVID19 Vaccination Haja: NO Third COVID19 Vaccination Date: NO Seasonal Allergies Seasonal Allergies: No Past Medical History Surgery/Hospitalization HX: PMH: IRREGULAR HR, HTN, HIGH CHOL, BYPASS Surgeries: Yes CABG, Coronary Stent, Defibrillator, Joint Replacement, Orthopedic, Pacemaker Respiratory: No Cardiac: Yes Coronary Artery Disease, High Cholesterol, Hypertension Neurological: No Reproductive Disorders: No Sexually Transmitted Disease: No HIV/AIDS: No Genitourinary: Yes Benign Prostatic Hyperpl, Prostate Problems Gastrointestinal: Yes Gastroesophageal Reflux Musculoskeletal: Yes Arthritis, Chronic Back Pain Endocrine: Yes Hypothyroidsim HEENT: No Cancer: Yes Skin Psychosocial: No Integumentary: No Blood Disorders: No Family Medical History No Pertinent Family Hx Physical Exam Vital Signs Vital Signs - First Documented 02/28/23 11:25 Pulse 84 Resp 16 B/P (MAP) 137/100 (112) Capillary Refill : Height, Weight, BMI Height: 5'11.00" Weight: 160lbs. 0.0oz. 72.765248hr; 32.00 BMI Method:Stated General Appearance: No Apparent Distress, WD/WN Eyes: Bilateral Eye Normal Inspection, Bilateral Eye PERRL, Bilateral Eye EOMI HEENT: PERRL/EOMI, TMs Normal, Normal ENT Inspection, Pharynx Normal Neck: Full Range of Motion, Normal Inspection, Non Tender, Supple Respiratory: Chest Non Tender, Lungs Clear, Normal Breath Sounds, No Accessory Muscle Use, No Respiratory Distress Cardiovascular: Regular Rate, Rhythm, No Edema, No Gallop, No JVD, No Murmur Gastrointestinal: Normal Bowel Sounds, No Organomegaly, No Pulsatile Mass, Non Tender Back: Normal Inspection, No CVA Tenderness, No Vertebral Tenderness Neurologic/Psychiatric: Alert, Oriented x3, No Motor/Sensory Deficits, Normal 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 No lesions.) Progress/Results/Core Measures Suspected Sepsis SIRS Temperature: Pulse: 84 Respiratory Rate: 16 Blood Pressure 137 /100 Mean: 112 Results/Orders Vital Signs/I&O 02/28/23 11:25 Pulse 84 Resp 16 B/P (MAP) 137/100 (112) Capillary Refill : Blood Pressure Mean: 112 Departure Communication (PCP) Reviewed previous ER visits, H&P, cardiac work-up. Patient had a cardiac stress test on 01/26/2022. Ejection fraction 47%. No significant myocardial ischemia. Currently on Plavix. Denies history of peripheral artery disease or peripheral vascular stent placement. Patient was concerned that the left side of his volar wrist looked blue when he woke up around 7:00. The blueness lasted for about a hour. Pain resolved. He had some mild lightheadedness but he had no chest pain, shortness of breath, dizziness, visual changes, unilateral muscle weakness or sensory changes. Denies any trauma. On exam patient has no evidence of skin color changes. Cap refill less than 2 upper and lower extremities. Equal pulses bilateral upper and lower extremity. No evidence suggesting peripheral artery disease. Patient vital signs are stable. Discussed with patient may have slept wrong on his left wrist or arm which resulted in some skin color changes and pain. Symptoms seem to improve however length of time is unusual. Due to normal presentation currently asymptomatic without any other complaints recommend continue monitoring at this time. There is no evidence suggesting peripheral vascular disease. No evidence suggesting DVT. Patient denies any trauma. if any worsening symptoms to return back to ED for further evaluation. Impression Primary Impression: Wrist pain Disposition: 01 HOME, SELF-CARE Condition: Stable Departure-Patient Inst. Decision time for Depature: 11:45 Referrals: ENRIKE VIEIRA MD (PCP/Family) Primary Care Physician Patient Instructions: Joint Pain SARAH NEGRETE Feb 28, 2023 11:45
[2023-02-28 11:59] VITALS: BP 115/54
== END 2023-02-28 12:02 | disposition home or self-care (01) ==
LOC: EDUNIT# 11:04 → ER 11:06
DX: M25.532 Pain in left wrist (principal); R42 Dizziness and giddiness; I25.10 Atherosclerotic heart disease of native coronary artery without angina pectoris; Z79.02 Long term (current) use of antithrombotics/antiplatelets; Z28.310 Unvaccinated for COVID-19
CPT/HCPCS: 99281

== ENCOUNTER 2023-05-25 00:57 | Emergency (ER) | payer MEDICARE ==
[~2023-05-25] VITALS: Ht 180 cm; Wt 63.5 kg
[2023-05-25 01:04] VITALS: BP 161/90
--- NOTE | 2023-05-25 01:11 | ED General ---
General Chief Complaint: - Reproductive Source of Information: Patient Exam Limitations: No Limitations History of Present Illness Date Seen by Provider: May 25, 2023 Time Seen by Provider: 01:11 Initial Comments Patient is an 88yo male who comes in with his with a concern for finding blood in his underwear this evening. He was getting ready to go to bed and noticed "a fair amount" in the fron part of his underwear. He denies dysuria, urgency or frequency. He is not certain but thinks it is from his urine and not rectum. No pain anywhere. No abdominal discomfort. No nausea/vomiting. No fevers. No SOB or chest pain. He is on PLavix. Timing/Duration: 1 Hour Severity: Mild Associated Systoms: Denies Symptoms Allergies and Home Medications Allergies Coded Allergies: acetaminophen (Verified Allergy, Unknown, 01/21/23) atorvastatin (Verified Allergy, Unknown, WEAKNESS, 01/21/23) levofloxacin (Verified Allergy, Unknown, 01/11/07) propoxyphene (Verified Allergy, Unknown, 01/21/23) Patient Home Medication List Home Medication List Reviewed: Yes Acetaminophen (Pain Relief Extra Strength) 500 Mg Tablet, 500-1,000 MG PO BID PRN for PAIN, (Reported) Entered as Reported by: AIDEE STEEN on 04/29/15813 Aspirin (Aspirin) 81 Mg Tablet, 81 MG PO HS, (Reported) Entered as Reported by: ADAN PERRIN on 02/18/07 1701 Clopidogrel Bisulfate (Plavix Tablet) 75 Mg Tab, 75 MG PO DAILY Prescribed by: JEANIE RUSH on 04/30/15 1008 Finasteride (Finasteride) 5 Mg Tablet, 5 MG PO DAILY, (Reported) Entered as Reported by: AIDEE STEEN on 04/29/15813 Levothyroxine Sodium (Levothyroxine 50 Mcg Tab) 50 Mcg Tablet, 50 MCG PO DAILY, (Reported) Entered as Reported by: AIDEE STEEN on 04/29/15813 Multivitamins (Multiple Vitamin) 1 Tab Tablet, 1 TAB PO DAILY, (Reported) Entered as Reported by: CHAVEZ MALCOLM on 08/14/11 1456 [place]-3 Fatty Acids/Fish Oil (Fish Oil 1,000 Mg Softgel) 1 Each Capsule, 1,000 MG PO TID, (Reported) Entered as Reported by: ANTONELLA ROSE on 03/21/11 190 Pantoprazole Sod (Protonix Tab) 40 Mg Tab, 40 MG PO ONCE Prescribed by: NATHEN HERNANDEZ on 06/09/15 0930 Sennosides/Docusate Sodium (Stool Softener Tablet) 1 Each Tablet, 1 EACH PO PRN, (Reported) Entered as Reported by: ROGER BALTAZAR on 06/05/15 1220 Simvastatin (Simvastatin) 20 Mg Tablet, 20 MG PO WITH EVENING MEAL, (Reported) Entered as Reported by: ANTONELLA ROSE on 03/21/11 190 Tamsulosin Hcl (Flomax) 0.4 Mg Cap, 0.4 MG PO AFTER EVENING MEAL, (Reported) Entered as Reported by: ANTONELLA ROSE on 03/19/13 1339 Review of Systems Review of Systems Constitutional: see HPI Respiratory: no symptoms reported Cardiovascular: no symptoms reported Gastrointestinal: no symptoms reported Genitourinary: other (possible blood in urine) Musculoskeletal: no symptoms reported Skin: no symptoms reported Psychiatric/Neurological: No Symptoms Reported Hematologic/Lymphatic: Other (weight loss per ) Past Jjtkred-Bcbwqx-Bbnuyv Hx Immunizations Up To Date Tetanus Booster (TDap): Unknown First/Initial COVID19 Vaccinat: NO Second COVID19 Vaccination Haja: NO Third COVID19 Vaccination Date: NO Seasonal Allergies Seasonal Allergies: No Past Medical History Surgery/Hospitalization HX: PMH: IRREGULAR HR, HTN, HIGH CHOL, BYPASS Surgeries: Yes CABG, Coronary Stent, Defibrillator, Joint Replacement, Orthopedic, Pacemaker Respiratory: No Cardiac: Yes Coronary Artery Disease, High Cholesterol, Hypertension Neurological: No Reproductive Disorders: No Sexually Transmitted Disease: No HIV/AIDS: No Genitourinary: Yes Benign Prostatic Hyperpl, Prostate Problems Gastrointestinal: Yes Gastroesophageal Reflux Musculoskeletal: Yes Arthritis, Chronic Back Pain Endocrine: Yes Hypothyroidsim HEENT: No Cancer: Yes Skin Psychosocial: No Integumentary: No Blood Disorders: No Family Medical History No Pertinent Family Hx Physical Exam Vital Signs Vital Signs - First Documented 05/25/23 01:04 Temp 36.3 Pulse 75 Resp 16 B/P (MAP) 161/90 (113) Pulse Ox 97 O2 Delivery Room Air Capillary Refill : Height, Weight, BMI Height: 5'11.00" Weight: 160lbs. 0.0oz. [id number]; 32.00 BMI Method:Stated General Appearance: No Apparent Distress, WD/WN, Thin Eyes: Bilateral Eye Normal Inspection, Bilateral Eye PERRL, Bilateral Eye EOMI HEENT: PERRL/EOMI, Moist Mucous Membranes Neck: Normal Inspection Respiratory: Lungs Clear, Normal Breath Sounds, No Accessory Muscle Use, No Respiratory Distress Cardiovascular: Regular Rate, Rhythm Gastrointestinal: Non Tender, Soft Rectal: Normal Rectal Tone, Heme Negative Stool; No Black Stool, No Blood Streaked Stool, No Hemorrhoids, No Tenderness Genital/Rectal: Normal Genital Exam; No Blood at Uretheral Meatus; Other (circumcised; no wounds or lesions/sores) Extremity: Normal Capillary Refill, Normal Range of Motion Neurologic/Psychiatric: Alert, Oriented x3, No Motor/Sensory Deficits, Normal Mood/Affect, cna pct II-XII Norm as Tested Skin: Normal Color Progress/Results/Core Measures Suspected Sepsis SIRS Temperature: Pulse: Respiratory Rate: Blood Pressure / Mean: Results/Orders Lab Results Laboratory Tests Test 05/25/23 01:08 Range/Units Urine Color YELLOW Urine Clarity CLEAR Urine pH 5.5 5-9 Urine Specific [place] 1.025 H 1.016-1.022 Urine Protein NEGATIVE NEGATIVE Urine Glucose (UA) NEGATIVE NEGATIVE Urine Ketones NEGATIVE NEGATIVE Urine Nitrite NEGATIVE NEGATIVE Urine Bilirubin NEGATIVE NEGATIVE Urine Urobilinogen 0.2 < = 1.0 MG/DL Urine Leukocyte Esterase NEGATIVE NEGATIVE Urine RBC (Auto) NEGATIVE NEGATIVE Urine RBC NONE /HPF Urine WBC NONE /HPF Urine Crystals NONE /LPF Urine Bacteria NEGATIVE /HPF Urine Casts PRESENT /LPF Urine Hyaline Casts 0-2 H /LPF Urine Mucus SMALL H /LPF Urine Culture Indicated NO My Orders Orders - HEYDI PATRICIA MD Ua Culture If Indicated (05/25/23 01:17) Vital Signs/I&O 05/25/23 01:04 Temp 36.3 Pulse 75 Resp 16 B/P (MAP) 161/90 (113) Pulse Ox 97 O2 Delivery Room Air Capillary Refill : Progress Note : Time: 02:38 Progress Note Patient seen and evaluated. Evaluation today includes physical exam, urinalysis. Pertinent physical exam findings well-developed well-nourished elderly male in no acute distress. No concerning findings on physical exam especially in the area. Patient is circumcised without any lesions or bleeding noted on the penis. Rectal exam is normal. Hemoccult negative. Differential diagnosis hematuria versus hemorrhoidal bleed. Labs independently reviewed and interpreted by me. Urinalysis is devoid of blood. No evidence of infection. Patient is monitored in the emergency department approximately an hour and reexamined. Stable vital signs, no further evidence of any bleeding from the urethra or rectum. Reassurance provided. Recommend close follow-up with their primary care physician. Return precautions provided in both verbal and written format. All questions are sought and answered. Patient is stable for discharge. Departure Impression Primary Impression: concern for hematuria Disposition: HOME, SELF-CARE Condition: Stable Departure-Patient Inst. Decision time for Depature: 02:30 Referrals: ENRIKE VIEIRA MD (PCP/Family) Primary Care Physician Add. Discharge Instructions: Continue your current medications as prescribed. Watch for any further signs of bleeding, if these occur, especially with n ausea/abdominal pain or fever, return to the Emergency Department for re- evaluation. Follow up with Dr Vieira for further evaluation. Copy Copies To 1: ENRIKE VIEIRA MD, KATHRYN M MD May 25, 2023 01:11
[2023-05-25 01:34] LABS: BILIRUBIN,URINE NEGATIVE (NEGATIVE); CLARITY,URINE CLEAR; COLOR,URINE YELLOW; GLUCOSE, URINE (UA) NEGATIVE (NEGATIVE); KETONES,URINE NEGATIVE (NEGATIVE); LEUKOCYTE ESTERASE ,URINE NEGATIVE (NEGATIVE); NITRITE,URINE NEGATIVE (NEGATIVE); PH,URINE 5.5 (5-9); PROTEIN,URINE NEGATIVE (NEGATIVE)
[2023-05-25 02:17] LABS: BACTERIA,URINE NEGATIVE /HPF; HYALINE CASTS, URINE 0-2 /LPF
== END 2023-05-25 02:34 | disposition home or self-care (01) ==
LOC: EDUNIT# 00:57 → ER 01:01
DX: R39.89 Other symptoms and signs involving the genitourinary system (principal); Z28.310 Unvaccinated for COVID-19; Z79.02 Long term (current) use of antithrombotics/antiplatelets
CPT/HCPCS: 81000; 82274

== ENCOUNTER → 2023-06-21 | Outpatient (CLI) | payer MEDICARE ==
--- NOTE | 2023-06-21 15:44 | Diagnostic Imaging Report ---
INDICATION: Hematuria Bilateral renal sonography performed in the routine fashion. There is no prior study for comparison. The right kidney measured 8.8 x 4.7 x 3.9 cm. The left kidney measured 7.0 x 4.8 x 4.1 cm. Both kidneys show some cortical thinning compatible with chronic disease, with no overt mass lesion or hydronephrosis or overt calculi. Urinary bladder showed initial volume of 198 mL with postvoid residual of 98 mL. There were bilateral ureteral jets. There is some irregularity of the inferior bladder wall which may due to prostatic enlargement. IMPRESSION: Relatively small kidneys bilaterally with no hydronephrosis or overt focal lesion. There is some cortical thinning of both kidneys compatible with chronic disease. Urinary bladder shows prominent postvoid residual of 98 mL with some irregularity inferior bladder wall which may be due to the enlarged prostate. If hematuria persists, consider CT for further evaluation. Dictated by: Dictated on workstation # [id number]
== END ==
LOC: RAD 13:35
PROVIDERS: ATTEND Nurse Practitioner Family
DX: R31.0 Gross hematuria (principal)
CPT/HCPCS: 76770

== ENCOUNTER 2023-07-16 22:10 | Emergency (ER) | payer MEDICARE ==
[~2023-07-16] VITALS: Ht 185.5 cm; Wt 64.5 kg
--- NOTE | 2023-07-16 22:43 | ED General ---
General Chief Complaint: Cardiac/General Problems Stated Complaint: WEAKNESS Nursing Triage Note: Patient c/o dizziness with weakness x 3 days. Patient states he felt like he was going to "pass out" earlier today. Patient c/o shortness of breath, but denies any cough, cold, or congestion. Patient denies any nausesa, vomiting, or diarrhea. Patient denies any chest pain or increased edema to bilat. LE. Patient denies any sore throat, but c/o bodyaches. Patient denies any ear pain or headache. Patient denies any palpitations. Source of Information: Patient, Old Records Exam Limitations: No Limitations History of Present Illness Date Seen by Provider: Jul 16, 2023 Time Seen by Provider: 22:20 Initial Comments This very pleasant 88-year-old gentleman presents to the emergency room with complaints of feeling weak and dizzy for the past 3 days. Today he he was rather weak in the afternoon and had difficulty getting up and moving about. He has had myalgias and some vague shortness of air. He also has had small frequent urinary voids. He has had nausea without vomiting. Appetite has been poor. He does think he has been drinking fairly well. He denies any chest pain or palpitations. He was ambulatory to the exam room. He has felt a little chilled but has not had fever. His is concerned because he slept all afternoon and then had difficulty getting up when he awoke. He has had some urinary incontinence as well. He reports some type of scan was performed recently as part of a urology evaluation. Review of his chart reveals this was a renal ultrasound. There was some irregularity to the bladder. He is being referred to Dr. Robles, urologist, at [facility] for further evaluation. Allergies and Home Medications Allergies Coded Allergies: acetaminophen (Verified Allergy, Unknown, 01/21/23) atorvastatin (Verified Allergy, Unknown, WEAKNESS, 01/21/23) levofloxacin (Verified Allergy, Unknown, 01/11/07) propoxyphene (Verified Allergy, Unknown, 01/21/23) Patient Home Medication List Home Medication List Reviewed: Yes Acetaminophen (Pain Relief Extra Strength) 500 Mg Tablet, 500-1,000 MG PO BID PRN for PAIN, (Reported) Entered as Reported by: AIDEE STEEN on 04/29/15 0814 Aspirin (Aspirin) 81 Mg Tablet, 81 MG PO HS, (Reported) Entered as Reported by: ADAN PERRIN on 02/18/07 1701 Clopidogrel Bisulfate (Plavix Tablet) 75 Mg Tab, 75 MG PO DAILY Prescribed by: JEANIE RUSH on 04/30/15 1008 Finasteride (Finasteride) 5 Mg Tablet, 5 MG PO DAILY, (Reported) Entered as Reported by: AIDEE STEEN on 04/29/15 0814 Levothyroxine Sodium (Levothyroxine 50 Mcg Tab) 50 Mcg Tablet, 50 MCG PO DAILY, (Reported) Entered as Reported by: AIDEE STEEN on 04/29/15 0814 Multivitamins (Multiple Vitamin) 1 Tab Tablet, 1 TAB PO DAILY, (Reported) Entered as Reported by: CHAVEZ MALCOLM on 08/14/11 1456 [place]-3 Fatty Acids/Fish Oil (Fish Oil 1,000 Mg Softgel) 1 Each Capsule, 1,000 MG PO TID, (Reported) Entered as Reported by: ANTONELLA ROSE on 03/21/11 1900 Pantoprazole Sod (Protonix Tab) 40 Mg Tab, 40 MG PO ONCE Prescribed by: NATHEN HERNANDEZ on 06/09/15 0930 Sennosides/Docusate Sodium (Stool Softener Tablet) 1 Each Tablet, 1 EACH PO PRN, (Reported) Entered as Reported by: ROGER BALTAZAR on 06/05/15 1220 Simvastatin (Simvastatin) 20 Mg Tablet, 20 MG PO WITH EVENING MEAL, (Reported) Entered as Reported by: ANTONELLA ROSE on 03/21/11 1900 Tamsulosin Hcl (Flomax) 0.4 Mg Cap, 0.4 MG PO AFTER EVENING MEAL, (Reported) Entered as Reported by: ANTONELLA ROSE on 03/19/13 1339 Review of Systems Review of Systems Constitutional: see HPI EENTM: no symptoms reported Respiratory: see HPI Cardiovascular: no symptoms reported Gastrointestinal: see HPI Genitourinary: see HPI Musculoskeletal: see HPI Skin: no symptoms reported Psychiatric/Neurological: No Symptoms Reported Hematologic/Lymphatic: No Symptoms Reported Immunological/Allergic: no symptoms reported Past Mtopyhy-Mmaudp-Wfsctt Hx Patient Social History Tobacco Use?: No Use of E-Cig and/or Vaping dev: No Substance use?: No Alcohol Use?: No Immunizations Up To Date Tetanus Booster (TDap): Unknown First/Initial COVID19 Vaccinat: x2 Second COVID19 Vaccination Haja: NO Third COVID19 Vaccination Date: NO Seasonal Allergies Seasonal Allergies: No Past Medical History Surgery/Hospitalization HX: PMH: IRREGULAR HR, HTN, HLD, GERD BYPASS, CARDIAC STENTS, HIP REPLACEMENT Surgeries: Yes CABG, Coronary Stent, Defibrillator, Joint Replacement, Orthopedic, Pacemaker Respiratory: No Cardiac: Yes Coronary Artery Disease, High Cholesterol, Hypertension Neurological: No Reproductive Disorders: No Sexually Transmitted Disease: No HIV/AIDS: No Genitourinary: Yes Benign Prostatic Hyperpl, Prostate Problems Gastrointestinal: Yes Gastroesophageal Reflux Musculoskeletal: Yes Arthritis, Chronic Back Pain Endocrine: Yes Hypothyroidsim HEENT: No Cancer: Yes Skin Psychosocial: No Integumentary: No Blood Disorders: No Family Medical History No Pertinent Family Hx Physical Exam Vital Signs Vital Signs - First Documented 07/16/23 07/17/23 22:24 00:23 Temp 37.6 Pulse 87 Resp 16 B/P (MAP) 127/78 (94) Pulse Ox 98 O2 Delivery Room Air Capillary Refill : Height, Weight, BMI Height: 5'11.00" Weight: 160lbs. 0.0oz. 72.125580wf; 18.00 BMI Method:Stated General Appearance: No Apparent Distress, WD/WN HEENT: PERRL/EOMI, Normal ENT Inspection, Pharynx Normal Neck: Normal Inspection; No JVD Respiratory: Lungs Clear, Normal Breath Sounds, No Accessory Muscle Use Cardiovascular: Regular Rate, Rhythm, No Edema, No Murmur Gastrointestinal: Normal Bowel Sounds, Non Tender, Soft; No Distended Extremity: Normal Inspection, No Pedal Edema Neurologic/Psychiatric: Alert, Oriented x3, No Motor/Sensory Deficits, Normal Mood/Affect Skin: Normal Color, Warm/Dry Progress/Results/Core Measures Suspected Sepsis SIRS Temperature: Pulse: 87 Respiratory Rate: 16 Laboratory Tests 07/16/23 22:46: White Blood Count 13.3H Blood Pressure 127 /78 Mean: 94 Laboratory Tests 07/16/23 22:46: Creatinine 1.24, Platelet Count 182, Total Bilirubin 0.6 Results/Orders Lab Results Laboratory Tests Test 07/16/23 22:46 07/16/23 22:52 07/16/23 23:20 Range/Units White Blood Count 13.3 H 4.3-11.0 10^3/uL Red Blood Count 4.26 L 4.30-5.52 10^6/uL Hemoglobin 13.5 13.3-17.7 g/dL Hematocrit 41 40-54 % Mean Corpuscular Volume 96 80-99 fL Mean Corpuscular Hemoglobin 32 25-34 pg Mean Corpuscular Hemoglobin Concent 33 32-36 g/dL Red Cell Distribution Width 12.6 10.0-14.5 % Platelet Count 182 130-400 10^3/uL Mean Platelet Volume 9.7 9.0-12.2 fL Immature Granulocyte % (Auto) 1 % Neutrophils (%) (Auto) 82 H 42-75 % Lymphocytes (%) (Auto) 8 L 12-44 % Monocytes (%) (Auto) 10 0-12 % Eosinophils (%) (Auto) 0 0-10 % Basophils (%) (Auto) 0 0-10 % Neutrophils # (Auto) 10.9 H 1.8-7.8 10^3/uL Lymphocytes # (Auto) 1.0 1.0-4.0 10^3/uL Monocytes # (Auto) 1.3 H 0.0-1.0 10^3/uL Eosinophils # (Auto) 0.0 0.0-0.3 10^3/uL Basophils # (Auto) 0.0 0.0-0.1 10^3/uL Immature Granulocyte # (Auto) 0.1 0.0-0.1 10^3/uL Neutrophils % (Manual) 82 % Lymphocytes % (Manual) 12 % Monocytes % (Manual) 6 % Blood Morphology Comment NORMAL Sodium Level 137 135-145 MMOL/L Potassium Level 4.3 3.6-5.0 MMOL/L Chloride Level 103 98-107 MMOL/L Carbon Dioxide Level 25 21-32 MMOL/L Anion Gap 9 5-14 MMOL/L Blood Urea Nitrogen 20 H 7-18 MG/DL Creatinine 1.24 0.60-1.30 MG/DL Estimat Glomerular Filtration Rate 56 BUN/Creatinine Ratio 16 Glucose Level 132 H 70-105 MG/DL Calcium Level 9.4 8.5-10.1 MG/DL Corrected Calcium 9.4 8.5-10.1 MG/DL Magnesium Level 1.9 1.6-2.4 MG/DL Total Bilirubin 0.6 0.1-1.0 MG/DL Aspartate Amino Transf (AST/SGOT) 20 5-34 U/L Alanine Aminotransferase (ALT/SGPT) 18 0-55 U/L Alkaline Phosphatase 93 40-136 U/L Troponin I < 0.028 <0.028 NG/ML C-Reactive Protein High Sensitivity 4.67 H 0.00-0.50 MG/DL Total Protein 7.1 6.4-8.2 GM/DL Albumin 4.0 3.2-4.5 GM/DL Thyroid Stimulating Hormone (TSH) 0.30 L 0.35-4.94 UIU/ML Free Thyroxine 0.93 0.70-1.48 NG/DL Influenza Type A (RT-PCR) Not Detected Not Detecte Influenza Type B (RT-PCR) Not Detected Not Detecte SARS-CoV-2 RNA (RT-PCR) Not Detected Not Detecte Urine Color YELLOW Urine Clarity CLEAR Urine pH 6.0 5-9 Urine Specific [place] 1.015 L 1.016-1.022 Urine Protein NEGATIVE NEGATIVE Urine Glucose (UA) NEGATIVE NEGATIVE Urine Ketones NEGATIVE NEGATIVE Urine Nitrite NEGATIVE NEGATIVE Urine Bilirubin NEGATIVE NEGATIVE Urine Urobilinogen .2 < = 1.0 MG/DL Urine Leukocyte Esterase NEGATIVE NEGATIVE Urine RBC (Auto) NEGATIVE NEGATIVE Urine RBC NONE /HPF Urine WBC NONE /HPF Urine Squamous Epithelial Cells RARE /HPF Urine Crystals NONE /LPF Urine Bacteria NEGATIVE /HPF Urine Casts NONE /LPF Urine Mucus NEGATIVE /LPF Urine Culture Indicated NO My Orders Orders - REY BAIN MD Ua Culture If Indicated (07/16/23 22:20) Cbc With Automated Diff (07/16/23 23:) Comprehensive Metabolic Panel (07/16/23 23:) Hs C Reactive Protein (07/16/23 23:) Ed Iv/Invasive Line Start (07/16/23 23:) Thyroid Stimulating Hormone (07/16/23:) Free T4 (Free Thyroxine) (07/16/23:) Bladder Scan (07/16/23:) Magnesium (07/16/23:) Covid 19 Inhouse Test (07/16/23:) Influenza A And B By Pcr (07/16/23 23:) Chest 1 View, Ap/Pa Only (07/16/23 23:02) Troponin I [place] (07/16/23 23:02) Ekg Tracing (8/19/23 23:02) Monitor-Rhythm Ecg Trace Only (07/16/23 23:02) Manual Differential (07/16/23 22:46) Vital Signs/I&O 07/16/23 07/17/23 22:24 00:23 Temp 37.6 Pulse 87 80 Resp 16 16 B/P (MAP) 127/78 (94) 151/91 Pulse Ox 98 O2 Delivery Room Air Room Air Capillary Refill : Blood Pressure Mean: 94 Progress Note : Progress Note Chief complaint was reviewed at 0 and a urinalysis was ordered. Chart review began at that time. Report was received from nursing staff at 2259 and orders were placed. I was in the room to interview and examine the patient at 2304. Physical exam was unremarkable. EKG was obtained and revealed no arrhythmia or ischemia. Chest x-ray was obtained and interpreted by me as unremarkable. Radiologist's report was not yet available. Bladder scan postvoid was obtained and revealed only about 100 mL of retained urine. All labs were reviewed and interpreted by me. Urinalysis was unremarkable. Influenza and COVID swabs were negative. CBC was notable for slight leukocytosis. CMP was notable for very slight elevation in BUN and glucose. These findings were not likely clinically significant. Troponin was negative. TSH was slightly elevated. Magnesium was normal. Patient was ultimately discharged with reassurance. Because of the slightly elevated BUN, increased fluid intake was recommended, especially while temperatures are so high. See discharge instructions for further discussion. ECG Initial ECG Impression Date: Jul 16, 2023 Initial ECG Impression Time: 23:25 Initial ECG Rate: 73 Initial ECG Rhythm: Normal Sinus Comment Normal sinus rhythm with no ST elevation or depression. No abnormal intervals or axis deviation. Diagnostic Imaging Diagonstic Imaging: Xray Plain Films/CT/US/NM/MRI: chest Comments Chest x-ray viewed by me and interpreted as unremarkable. Radiologist report pending at the time of encounter. Departure Impression Primary Impression: Generalized weakness Additional Impressions: Lightheadedness Leukocytosis Qualified Codes: D72.829 - Elevated white blood cell count, unspecified Urinary incontinence Qualified Codes: R32 - Unspecified urinary incontinence Disposition: HOME, SELF-CARE Condition: Stable Departure-Patient Inst. Decision time for Depature: 00:10 Referrals: ENRIKE VIEIRA MD (PCP/Family) Primary Care Physician Patient Instructions: Urinary incontinence in males Add. Discharge Instructions: Drink plenty of clear liquids to stay well-hydrated, starting with a large glass of water tonight. Be extra diligent about staying well-hydrated, especially while temperatures are very hot. Keep your appointment with Dr. Vieira's office on Tuesday. Bring these discharge instructions with you to that appointment. Further work-up may be desired such as a repeat of your cell counts to be sure the elevated white blood cell count returns to normal. Return to care in the ER if you have worsening symptoms or you develop new symptoms such as chest pain, fevers, confusion, etc. Call with questions or concerns. All discharge instructions reviewed with patient and/or family. Voiced understanding. Copy Copies To 1: ENRIKE VIEIRA MD, JOSHUA T MD Jul 16, 2023 22:43
[2023-07-16 23:08] LABS: BASOPHILS % (AUTO) 0 % (0-10); EOSINOPHILS % (AUTO) 0 % (0-10); HEMATOCRIT 41 % (40-54); HEMOGLOBIN 13.5 g/dL (13.3-17.7); LYMPHOCYTES % (AUTO) 8 % (12-44); MEAN CORPUSCULAR HEMOGLOBIN 32 pg (25-34); MEAN CORPUSCULAR HGB CONC 33 g/dL (32-36); MEAN CORPUSCULAR VOLUME 96 fL (80-99); MEAN PLATELET VOLUME 9.7 fL (9.0-12.2); MONOCYTES # (AUTO) 1.3 10^3/uL (0.0-1.0); MONOCYTES % (AUTO) 10 % (0-12); NEUTROPHILS # (AUTO) 10.9 10^3/uL (1.8-7.8); NEUTROPHILS % (AUTO) 82 % (42-75); PLATELET COUNT 182 10^3/uL (130-400); WHITE BLOOD COUNT 13.3 10^3/uL (4.3-11.0)
[2023-07-16 23:18] LABS: CHLORIDE 103 MMOL/L (98-107); POTASSIUM 4.3 MMOL/L (3.6-5.0); SODIUM 137 MMOL/L (135-145)
[2023-07-16 23:19] LABS: CALCIUM 9.4 MG/DL (8.5-10.1)
[2023-07-16 23:20] LABS: GLUCOSE 132 MG/DL (70-105); TOTAL PROTEIN 7.1 GM/DL (6.4-8.2)
[2023-07-16 23:21] LABS: CARBON DIOXIDE 25 MMOL/L (21-32)
[2023-07-16 23:22] LABS: BILIRUBIN,TOTAL 0.6 MG/DL (0.1-1.0)
[2023-07-16 23:24] LABS: ALKALINE PHOSPHATASE 93 U/L (40-136); CREATININE SERUM 1.24 MG/DL (0.60-1.30); GFR ESTIMATED 56; LYMPHOCYTES % (MANUAL) 12 %; MONOCYTES % (MANUAL) 6 %; NEUTROPHILS % (MANUAL) 82 %; RBC MORPH NORMAL
[2023-07-16 23:25] LABS: BUN/CREATININE RATIO 16
[2023-07-16 23:27] LABS: ALANINE AMINOTRANSFERASE 18 U/L (0-55); MAGNESIUM 1.9 MG/DL (1.6-2.4)
[2023-07-16 23:42] LABS: CLARITY,URINE CLEAR; COLOR,URINE YELLOW
[2023-07-16 23:43] LABS: BACTERIA,URINE NEGATIVE /HPF; BILIRUBIN,URINE NEGATIVE (NEGATIVE); GLUCOSE, URINE (UA) NEGATIVE (NEGATIVE); KETONES,URINE NEGATIVE (NEGATIVE); LEUKOCYTE ESTERASE ,URINE NEGATIVE (NEGATIVE); NITRITE,URINE NEGATIVE (NEGATIVE); PROTEIN,URINE NEGATIVE (NEGATIVE); SQUAMOUS EPITHELIAL CELL,UR RARE /HPF
[2023-07-16 23:48] LABS: FREE T4 (FREE THYROXINE) 0.93 NG/DL (0.70-1.48)
[2023-07-17 00:23] VITALS: BP 151/91
--- NOTE | 2023-07-17 06:33 | Diagnostic Imaging Report ---
INDICATION: Dyspnea. COMPARISON: 01/21/2023. DISCUSSION: Single portable upright view of the chest was obtained. Normal heart size. Left-sided pacemaker and median sternotomy are stable. No consolidation, pleural fluid, or pneumothorax. No osseous abnormality. IMPRESSION: 1. Negative chest. Dictated by: Dictated on workstation # [id number]
== END 2023-07-17 00:23 | disposition home or self-care (01) ==
LOC: EDUNIT# 22:10 → ER 22:12
DX: R53.1 Weakness (principal); R42 Dizziness and giddiness; D72.829 Elevated white blood cell count, unspecified; R32 Unspecified urinary incontinence; Z28.311 Partially vaccinated for COVID-19; Z20.822 Contact with and (suspected) exposure to COVID-19
CPT/HCPCS: 36415; 71045; 80053; 81000; 83735; 84439; 84443; 84484; 85007; 85027; 86141; 87636; 93005; 93041

== ENCOUNTER → 2023-07-27 | Outpatient (CLI) | payer MEDICARE ==
[~2023-07-27] MED LIST changes: +HOLD METFORMIN - RECEIVED CONTRAST 20 ML VIAL IV SCH; +IOHEXOL 350 MG/ML 100 ML (OMNIPAQUE 350) VIAL IV ONE; +NS 100 ML (IVPB) BAG IV ONE
--- NOTE | 2023-07-27 13:54 | Diagnostic Imaging Report ---
PROCEDURE: CT head without contrast. TECHNIQUE: Multiple contiguous axial images were obtained through the brain without the use of intravenous contrast. Auto Exposure Controls were utilized during the CT exam to meet ALARA standards for radiation dose reduction. INDICATION: Memory loss. Comparison is made prior head CT 01/31/2023. Ventricles and sulci are prominent consistent with the patient's age. Moderate periventricular low-attenuation is noted consistent with chronic microvascular ischemia. No sulcal effacement or midline shift is identified. No acute intra-axial or extra-axial hemorrhage is detected. Cisterns are patent. Visualized paranasal sinuses are clear. IMPRESSION: Chronic and senescent changes. No acute intracranial process is detected. Dictated by: Dictated on workstation # [id number]
--- NOTE | 2023-07-27 14:13 | Diagnostic Imaging Report ---
PROCEDURE: CT abdomen and pelvis with and without contrast. TECHNIQUE: Precontrast acquisitions were acquired through the abdomen and pelvis. Multiple contiguous axial images were obtained through the abdomen and pelvis after the administration of intravenous contrast. Auto Exposure Controls were utilized during the CT exam to meet ALARA standards for radiation dose reduction. INDICATION: Abnormal weight loss as well as hematuria. Recent ultrasound did show some irregularity along the inferior bladder wall. The study is performed for further evaluation. FINDINGS: The lung bases are clear. No focal liver mass is identified. Gallbladder is contracted. There is no biliary ductal dilatation. Pancreas and spleen are unremarkable. There is moderate fluid-filled distention to the stomach. No adrenal mass is identified. No renal calculi are identified. Kidneys do contain small cortical low-attenuation lesions, likely small cysts. The aorta is nonaneurysmal. Bowel loops are nonobstructed. There is no ascites. The prostate is enlarged. There is moderate artifact through the pelvis from the patient's right hip prosthesis. IMPRESSION: Essentially unremarkable CT of the abdomen and pelvis apart from prostatomegaly. The bladder is mostly decompressed and not well evaluated on this study. In addition, there is a large amount of artifact through the pelvis from the patient's hip prosthesis. If there continues to be concern for bladder lesion, urologic consultation and cystoscopy would be recommended. Dictated by: Dictated on workstation # [id number]
== END ==
LOC: RAD 12:56
PROVIDERS: ATTEND Family Medicine
DX: G93.9 Disorder of brain, unspecified (principal); D72.829 Elevated white blood cell count, unspecified; R63.4 Abnormal weight loss; R31.9 Hematuria, unspecified; R93.41 Abnormal radiologic findings on diagnostic imaging of renal pelvis, ureter, or bladder; R41.82 Altered mental status, unspecified
CPT/HCPCS: 70450; 74178

== ENCOUNTER → 2023-11-02 | Outpatient (CLI) | payer MEDICARE ==
[~2023-11-02] MED LIST changes: -HOLD METFORMIN - RECEIVED CONTRAST 20 ML VIAL IV SCH; -IOHEXOL 350 MG/ML 100 ML (OMNIPAQUE 350) VIAL IV ONE; -NS 100 ML (IVPB) BAG IV ONE
--- NOTE | 2023-11-02 17:22 | Diagnostic Imaging Report ---
INDICATION: Left shoulder pain. EXAMINATION: Two view left shoulder performed. 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 No erosion. No abnormal calcification. No loose body. No fracture. 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 Dictated by: Dictated on workstation # [id number]
== END ==
LOC: RAD 13:34
PROVIDERS: ATTEND Nurse Practitioner Family
DX: M19.012 Primary osteoarthritis, left shoulder (principal)
CPT/HCPCS: 73030